=== PATIENT | female | born 1950 | race Caucasian/White ===

== ENCOUNTER 2018-11-23 21:00 | Emergency (ER) | payer OTHER ==
[2018-11-23] MEDS ORDERED: fentaNYL 100 MCG/2 ML SDV NASBOTH ONE (23:00)
--- NOTE | 2018-11-23 23:05 | EDM.PDOC ---
ED HPI GENERAL MEDICAL PROBLEM - General Chief Complaint: General Stated Complaint: PAIN FROM ANKLES TO SHOULDERS Time Seen by Provider: 11/23/18 22:45 Source of Information: Reports: Patient, Family, RN Notes Reviewed History Limitations: Reports: No Limitations - History of Present Illness INITIAL COMMENTS - FREE TEXT/NARRATIVE: 68-year-old female presents to the emergency department today complaint of pain , she is currently following with rheumatology has an appointment with the corn popper on Tuesday her issue is she is using combination ibuprofen gabapentin for pain her current working diagnosis is polymyalgia rheumatica she is currently on 3 mg of prednisone. She is complaining of generalized joint and muscle pain shoulders to the ankles Bilateral Thoracic Pain Score (Numeric/FACES): 9 - Related Data Allergies Allergy/AdvReac Type Severity Reaction Status Date / Time cephalexin [From Keflex] Allergy Body Aches Verified 11/23/18 22:04 codeine Allergy Tachycardia Verified 11/23/18 22:04 Home Meds: Home Meds Acetaminophen [8Hr Muscle Aches-Pain] 1,300 mg PO DAILY 11/23/18 [History] Aspirin [Halfprin] 81 mg PO DAILY 11/23/18 [History] Calcium Carbonate 1,000 mg PO DAILY 11/23/18 [History] Cholecalciferol (Vitamin D3) [Vitamin D3] 1,000 unit PO DAILY 11/23/18 [History] Gabapentin [Neurontin] 300 mg PO DAILY 11/23/18 [History] Ibandronate [Boniva] 150 mg PO ASDIRECTED 11/23/18 [History] Milk Thistle Seed Extract [Milk Thistle] 175 mg PO DAILY 11/23/18 [History] Nitrofurantoin Macrocrystal [Macrodantin] 50 mg PO DAILY 11/23/18 [History] Lemhi-3/DHA/Epa/Fish Oil [Lemhi 3 500 Softgel] 1,000 mg PO DAILY 11/23/18 [ History] Omeprazole 40 mg PO ONETIME 11/23/18 [History] amLODIPine [Norvasc] 10 mg PO DAILY 11/23/18 [History] diphenhydrAMINE [Benadryl] 50 mg PO DAILY 11/23/18 [History] predniSONE [Prednisone] 3 mg PO DAILY 11/23/18 [History] Past Medical History HEENT History: Reports: Impaired Vision, Sinusitis Cardiovascular History: Reports: Hypertension Genitourinary History: Reports: UTI, Recurrent Other Genitourinary History: several UTIs in 2018 GRANTS ASSISTANT History: Reports: Other GRANTS ASSISTANT History: hysterectomy Musculoskeletal History: Reports: Arthritis, Fracture, RA Other Musculoskeletal History: wrist fx, knee cap fx. Polymyalgia Psychiatric History: Reports: Depression Hematologic History: Reports: Anemia - Past Surgical History HEENT Surgical History: Reports: Naso-Sinus Surgery GI Surgical History: Reports: Appendectomy, Cholecystectomy Other GI Surgeries/Procedures: stomach stapling Social & Family History - Tobacco Use Smoking Status *Q: Never Smoker - Caffeine Use Caffeine Use: Reports: Soda Caffeine Use Comment: daily single soda - Recreational Drug Use Recreational Drug Use: No ED ROS GENERAL - Review of Systems Review Of Systems: See Below Constitutional: Reports: No Symptoms Respiratory: Reports: No Symptoms Cardiovascular: Reports: No Symptoms Musculoskeletal: Reports: Joint Pain, Muscle Pain ED EXAM, GENERAL - Physical Exam Exam: See Below Exam Limited By: No Limitations General Appearance: Alert, WD/WN, No Apparent Distress Respiratory/Chest: No Respiratory Distress Course - Vital Signs Last Recorded V/S: Last Vital Signs Temp 97.2 F 11/23/18 22:02 Pulse 71 11/23/18 22:02 Resp 16 11/23/18 22:02 BP 195/86 H 11/23/18 22:02 Pulse Ox 98 11/23/18 22:02 - Orders/Labs/Meds Orders: Active Orders 24 hr Category Date Time Status fentaNYL [Sublimaze] Med 11/23/18 23:00 Once 50 mcg NASBOTH ONETIME ONE Departure - Departure Time of Disposition: 23:04 Disposition: Home, Self-Care 01 Condition: Fair Clinical Impression: Muscle pain - Discharge Information Referrals: Svitlana Calderon PA [Primary Care Provider] - Additional Instructions: Continue to use ibuprofen as needed for pain control use hydrocodone for breakthrough pain, please keep your follow-up appointment with rheumatology on Tuesday - My Orders Last 24 Hours: My Active Orders 11/23/18 23:00 fentaNYL [Sublimaze] 50 mcg NASBOTH ONETIME ONE - Assessment/Plan Last 24 Hours: My Active Orders 11/23/18 23:00 fentaNYL [Sublimaze] 50 mcg NASBOTH ONETIME ONE Plan: Assessment Acuity = acute Site and laterality = generalized joint and muscle pain Etiology = polymyalgia rheumatic Manifestations = none Location of injury = Home Lab values = none Plan She is provided fentanyl in the emergency department prescription written for hydrocodone 5/325 one tab by mouth 3 times a day when necessary total #20, she will follow up with her corn popper on Tuesday This note was dictated using [employer] voice recognition software please call with any questions on syntax or grammar.
== END 2018-11-23 23:28 | disposition home or self-care (01) ==
LOC: JP.ED 21:00
DX: M35.3 Polymyalgia rheumatica (principal); I10 Essential (primary) hypertension; Z88.1 Allergy status to other antibiotic agents; Z88.5 Allergy status to narcotic agent; Z79.82 Long term (current) use of aspirin; Z79.899 Other long term (current) drug therapy
CPT/HCPCS: 99283; J3010